=== PATIENT | female | born 1945 | race American Indian/Alaskan Native ===

== ENCOUNTER 2019-08-30 09:01 | Emergency (ER) | payer MEDICARE ==
[2019-08-30 09:06] VITALS: BP 174/96
--- NOTE | 2019-08-30 10:48 | Emergency Department Report ---
ED Shortness of Breath HPI - General Chief Complaint: Dyspnea/Respdistress Stated Complaint: SOB Time Seen by Provider: 08/30/19 10:31 Source: patient Mode of arrival: Ambulatory Limitations: No Limitations - History of Present Illness Initial Comments: 74-year-old -[place] female presents to the emergency room complaining of shortness of breath and cough x2 days. Patient denies any recent travels denies any fever denies any chest pain. Patient reports that she has a past medical history of diabetes on insulin 70/30. Patient states that she had a sick contact a week ago and now has come up with a cough and shortness of breath. Patient denies any lower leg swelling she denies any history of congestive heart failure. MD Complaint: shortness of breath, cough Onset/Timin -: days(s) Pain Scale: 0 Consistency: intermittent Worsens With: lying flat Known History Of: diabetes Associated Symptoms: cough Treatments Prior to Arrival: none - Related Data Home Oxygen Therapy: No Allergies Allergy/AdvReac Type Severity Reaction Status Date / Time No Known Allergies Allergy Unverified 08/30/19 09:04 ED Review of Systems ROS: Stated complaint: SOB Other details as noted in HPI Comment: All other systems reviewed and negative ED Past Medical Hx - Past Medical History Previous Medical History?: Yes Hx Diabetes: Yes ED Physical Exam - General Limitations: No Limitations General appearance: alert, other (Patient is having shortness of breath while talking ) - Head Head exam: Present: atraumatic, normocephalic - Eye Eye exam: Present: normal appearance - ENT ENT exam: Present: mucous membranes moist - Neck Neck exam: Present: normal inspection, full ROM - Respiratory Respiratory exam: Present: rales, accessory muscle use, decreased breath sounds - Cardiovascular Cardiovascular Exam: Present: tachycardia - GI/Abdominal GI/Abdominal exam: Present: soft, normal bowel sounds - Extremities Exam Extremities exam: Present: normal inspection - Back Exam Back exam: Present: normal inspection - Neurological Exam Neurological exam: Present: alert, oriented X3 - Psychiatric Psychiatric exam: Present: normal affect, normal mood - Skin Skin exam: Present: warm, dry, intact, normal color. Absent: rash ED Course Vital Signs 08/30/19 08/30/19 08/30/19 09:05 11:28 14:01 Temperature 98.5 F Pulse Rate 109 H 100 H Pulse Rate [ 71 Bilateral] Respiratory 16 16 Rate Respiratory 16 Rate [Bilateral ] Blood Pressure 174/96 [Right] O2 Sat by Pulse 98 98 Oximetry - Reevaluation(s) Reevaluation #1: 08/30/19 14:02 Patient reports she feels much better after having antibiotics and Lasix. Patient was able to ambulate without shortness of breath and de-satting. ED Medical Decision Making - Lab Data Result diagrams: 08/30/19 11:20 08/30/19 11:20 - Radiology Data Radiology results: report reviewed Patient: ELSY VIDAL MR#: [id number] : 1945 Acct:[id number] Age/Sex: 74 / F ADM Date: 08/30/19 Loc: ED Attending Dr: Ordering Physician: DEON FAY MD Date of Service: 08/30/19 Procedure(s): XR chest routine 2V Accession Number(s): [id number] cc: DEON FAY MD Fluoro Time In Minutes: CHEST 2 VIEWS INDICATION / CLINICAL INFORMATION: SOB x 3 days. COMPARISON: 2 views of the chest from 02/04/2009. FINDINGS: SUPPORT DEVICES: None. HEART / MEDIASTINUM: No significant abnormality. LUNGS / PLEURA: There are generalized bilateral pulmonary opacities. No significant pleural effusion. No pneumothorax. ADDITIONAL FINDINGS: No significant additional findings. IMPRESSION: Bilateral pulmonary opacities may represent pneumonia or edema. Please correlate with the clinical findings. Follow-up PA and lateral chest radiographs in 2-3 weeks are recommended to document clearing. Signer Name: Hank Cody MD Signed: 08/30/2019 10:43 AM Workstation Name: [id number] Transcribed By: [place] Dictated By: Hank Cody MD Electronically Authenticated By: Hank Cody MD Signed Date/Time: 08/30/19 1043 DD/ 1039 TD/TT: - Medical Decision Making 74-year-old -[place] female presents to the emergency room complaining of shortness of breath and cough x2 days. Patient denies any recent travels denies any fever denies any chest pain. Patient reports that she has a past medical history of diabetes on insulin 70/30. Patient states that she had a sick contact a week ago and now has come up with a cough and shortness of breath. Patient denies any lower leg swelling she denies any history of congestive heart failure. Chest x-ray shows opacities in the lower lung suggestive of pneumonia, CBC CMP BNP troponin has been ordered. Patient BNP came back at 1954. Initiated Lasix 40 mg IV and albuterol treatment. Patient did get azithromycin for coverage of community-acquired pneumonia. I discussed with patient that I would like for her to follow-up with a continuing education instructor for further evaluation of new onset of congestive congestive heart failure. As well as her primary care provider. Patient verbalized understanding. Critical care attestation.: If time is entered above; I have spent that time in minutes in the direct care of this critically ill patient, excluding procedure time. ED Disposition Clinical Impression: Diabetes Congestive heart failure Qualifiers: Heart failure type: unspecified Heart failure chronicity: acute Qualified Code(s): I50.9 - Heart failure, unspecified Community acquired pneumonia Qualifiers: Laterality: unspecified laterality Qualified Code(s): J18.9 - Pneumonia, unspecified organism Disposition: TO HOME OR SELFCARE Is pt being admited?: No Does the pt Need Aspirin: No Condition: Stable Instructions: Diabetes Mellitus Type 2 in Adults (ED), Heart Failure (ED) Referrals: ORA RIZO MD [Primary Care Provider] - 3-5 Days [facility] [Provider Group] - 3-5 Days
[2019-08-30] MEDS ORDERED: ALBUTEROL 2.5 MG/3 ML NEBU IH ONE (11:05)
[2019-08-30] MEDS ORDERED: AZITHROMYCIN 500 MG in SODIUM CHLORIDE 0.9% 250ML 250 ML IV ONE (11:30)
[2019-08-30 11:54] LABS: Basophils % (Auto) 0.9 % (0.0-1.8); Eosinophils % (Auto) 0.6 % (0.0-4.3); Hematocrit 38.6 % (30.3-42.9); Hemoglobin 13.3 gm/dl (10.1-14.3); Lymphocytes # (Auto) 0.7 K/mm3 (1.2-5.4); Lymphocytes % (Auto) 13.3 % (13.4-35.0); Mean Corpuscular HGB Conc 35 % (30-34); Mean Corpuscular Volume 83 fl (79-97); Monocytes # (Auto) 0.4 K/mm3 (0.0-0.8); Monocytes % (Auto) 6.7 % (0.0-7.3); Platelet Count 298 K/mm3 (140-440); Red Blood Count 4.67 M/mm3 (3.65-5.03); Red Cell Distribution Width 14.6 % (13.2-15.2)
[2019-08-30 12:12] LABS: Alanine Aminotransferase 16 units/L (7-56); Albumin 3.6 g/dL (3.9-5); BUN/Creatinine Ratio 15; Blood Urea Nitrogen 12 mg/dL (7-17); Calcium 9.6 mg/dL (8.4-10.2); Hemolysis Index 7
[2019-08-30] MEDS ORDERED: FUROSEMIDE 40 MG/4 ML INJ IV ONE (12:22)
== END 2019-08-30 14:32 | disposition home or self-care (01) ==
LOC: ED 09:01
DX: E11.9 Type 2 diabetes mellitus without complications (principal); I10 Essential (primary) hypertension; J18.9 Pneumonia, unspecified organism; Z79.4 Long term (current) use of insulin
CPT/HCPCS: 36415; 71046; 80053; 83880; 85025; 94640; 96365; 96375; 99284; J0456; J1940; J7050; 94644

== ENCOUNTER 2020-05-31 11:11 | Emergency (ER) | payer MEDICARE ==
--- NOTE | 2020-05-31 12:10 | Emergency Department Report ---
ED Palpitations HPI - General Chief Complaint: Arrhythmia/Palpitations Stated Complaint: HEART RACING Time Seen by Provider: 05/31/20 11:50 Source: patient Mode of arrival: Ambulatory Limitations: No Limitations - History of Present Illness Initial Comments: 74-year-old female, history of CHF, diabetes, presents to ED with an arrhythmia. Patient had an appointment at her PCPs office. Upon checking her vital signs, patient was found to be tachycardic. EKG was done which showed that patient was in A. fib with RVR. Patient reports she did not have a sensation of palpitations, however she did feel lightheaded and slightly short of breath. Patient sent to the ED for further evaluation. She denies any chest pain, fever, vomiting, abdominal pain, cough, known exposure to anyone who has tested positive for COVID-19. Patient also denies any history of actually having COVID-19. Heart rate is currently in the 90s. Patient is unsure if he has been diagnosed with atrial fibrillation previously. She denies being on any anticoagulation. Program Attendant: Dr Kezia Johnson MD Complaint: atrial fibrillation -: This morning Context: occured during rest Arrythmia History: atrial fibrillation Associated Symptoms: shortness of breath, near-syncope. denies: chest pain, nausea/vomiting, diaphoresis, cough - Related Data Home Medications Medication Instructions Recorded Confirmed Last Taken Insulin NPH Hum/Reg Insulin Hm 15 units SQ DAILY 10/24/19 02/05/20 02/04/20 [Novolin 70-30 100 Unit/ml Vial] Metformin HCl [metFORMIN] 1,000 mg PO BID 10/24/19 02/05/20 02/04/20 Entresto 24 - 26 mg 24 - 26 mg PO BID 02/05/20 02/05/20 02/04/20 Ergocalciferol (Vitamin D2) 50,000 unit PO QWEEK 02/05/20 02/05/20 01/30/20 [Vitamin D2] Previous Rx's Medication Instructions Recorded Last Taken Type Nortriptyline [Pamelor] 25 mg PO QHS capsule 10/27/19 02/03/20 Rx Acetaminophen [Acetaminophen TAB] 650 mg PO Q4H PRN tablet 02/07/20 Unknown Rx AtorvaSTATin [Lipitor] 20 mg PO QHS #30 tablet 02/07/20 Unknown Rx Furosemide [Lasix TAB] 40 mg PO QDAY #30 tablet 02/07/20 Unknown Rx Insulin Lispro [Humalog] 0 unit SUB-Q ACHS vial 02/07/20 Unknown Rx Sacubitril/Valsartan [Entresto 24 1 each PO BID tablet 02/07/20 Unknown Rx - 26 mg] hydroCHLOROthiazide [HCTZ] 25 mg PO QDAY 30 Days #30 tablet 02/07/20 Unknown Rx oxyCODONE /ACETAMINOPHEN [Percocet 1 tab PO Q6H PRN tablet 02/07/20 Unknown Rx 5/325 mg] Apixaban [Eliquis] 5 mg PO BID #60 tablet 05/31/20 Unknown Rx Metoprolol [Lopressor TAB] 25 mg PO BID #60 tablet 05/31/20 Unknown Rx Allergies Allergy/AdvReac Type Severity Reaction Status Date / Time No Known Allergies Allergy Verified 05/31/20 11:16 ED Review of Systems ROS: Stated complaint: HEART RACING Other details as noted in HPI Comment: All other systems reviewed and negative Constitutional: denies: chills, fever Respiratory: shortness of breath. denies: cough Cardiovascular: denies: chest pain, palpitations Gastrointestinal: denies: nausea, vomiting ED Past Medical Hx - Past Medical History Hx Hypertension: Yes Hx Heart Attack/AMI: No Hx Congestive Heart Failure: Yes (hx) Hx Diabetes: Yes Hx Deep Vein Thrombosis: No Hx Arthritis: No Hx Seizures: No Hx Asthma: No - Surgical History Hx Cholecystectomy: No Hx Appendectomy: No - Social History Smoking Status: Never Smoker - Medications Home Medications: Home Medications Medication Instructions Recorded Confirmed Last Taken Type Insulin NPH Hum/Reg Insulin Hm 15 units SQ DAILY 10/24/19 02/05/20 02/04/20 History [Novolin 70-30 100 Unit/ml Vial] Metformin HCl [metFORMIN] 1,000 mg PO BID 10/24/19 02/05/20 02/04/20 History Nortriptyline [Pamelor] 25 mg PO QHS capsule 10/27/19 02/05/20 02/03/20 Rx Entresto 24 - 26 mg 24 - 26 mg PO BID 02/05/20 02/05/20 02/04/20 History Ergocalciferol (Vitamin D2) 50,000 unit PO QWEEK 02/05/20 02/05/20 01/30/20 History [Vitamin D2] Acetaminophen [Acetaminophen TAB] 650 mg PO Q4H PRN tablet 02/07/20 Unknown Rx AtorvaSTATin [Lipitor] 20 mg PO QHS #30 tablet 02/07/20 Unknown Rx Furosemide [Lasix TAB] 40 mg PO QDAY #30 tablet 02/07/20 Unknown Rx Insulin Lispro [Humalog] 0 unit SUB-Q ACHS vial 02/07/20 Unknown Rx Sacubitril/Valsartan [Entresto 24 1 each PO BID tablet 02/07/20 Unknown Rx - 26 mg] hydroCHLOROthiazide [HCTZ] 25 mg PO QDAY 30 Days #30 tablet 02/07/20 Unknown Rx oxyCODONE /ACETAMINOPHEN [Percocet 1 tab PO Q6H PRN tablet 02/07/20 Unknown Rx 5/325 mg] Apixaban [Eliquis] 5 mg PO BID #60 tablet 05/31/20 Unknown Rx Metoprolol [Lopressor TAB] 25 mg PO BID #60 tablet 05/31/20 Unknown Rx ED Physical Exam - General Limitations: No Limitations General appearance: alert, in no apparent distress - Head Head exam: Present: atraumatic, normocephalic - Eye Eye exam: Present: normal appearance, EOMI - ENT ENT exam: Present: mucous membranes moist - Neck Neck exam: Present: normal inspection - Respiratory Respiratory exam: Present: normal lung sounds bilaterally. Absent: respiratory distress - Cardiovascular Cardiovascular Exam: Present: regular rate, normal rhythm - GI/Abdominal GI/Abdominal exam: Present: soft. Absent: distended, tenderness - Extremities Exam Extremities exam: Present: normal inspection - Neurological Exam Neurological exam: Present: alert, oriented X3, CN II-XII intact. Absent: motor sensory deficit - Psychiatric Psychiatric exam: Present: normal affect, normal mood - Skin Skin exam: Present: warm, dry, intact, normal color ED Course Vital Signs 05/31/20 05/31/20 05/31/20 11:51 12:00 12:15 Pulse Rate 95 H 94 H 93 H Respiratory 24 25 H 22 Rate Blood Pressure 107/61 89/47 O2 Sat by Pulse 100 99 99 Oximetry 05/31/20 05/31/20 05/31/20 12:30 12:45 13:00 Pulse Rate 96 H 88 91 H Respiratory 23 21 25 H Rate Blood Pressure 105/63 107/63 107/63 O2 Sat by Pulse 100 98 97 Oximetry 05/31/20 05/31/20 05/31/20 13:15 13:30 13:46 Pulse Rate 86 86 89 Respiratory 23 20 19 Rate Blood Pressure 115/66 112/62 122/67 O2 Sat by Pulse 97 99 99 Oximetry 05/31/20 05/31/20 05/31/20 14:00 14:16 14:33 Pulse Rate 93 H 94 H Respiratory 17 15 Rate Blood Pressure 122/67 117/64 117/64 O2 Sat by Pulse 98 100 Oximetry 05/31/20 14:46 Pulse Rate Respiratory Rate Blood Pressure 117/64 O2 Sat by Pulse 81 L Oximetry - Reevaluation(s) Reevaluation #1: 05/31/20 12:09 Repeat EKG shows that patient is now in normal sinus rhythm. Lateral T wave inversions present, unchanged compared to EKG from January 2020. - Consultations Consultation #1: 05/31/20 12:32 Abbie Whitney, midlevel w/ [facility], saw pt at bedside. Since patient now in normal sinus rhythm, states to d/c her carvedilol, and switch to metoprolol 25 mg twice daily. Start Eliquis. Patient will follow-up in office. ED Medical Decision Making - Lab Data Result diagrams: 05/31/20 12:20 05/31/20 12:20 - EKG Data -: EKG Interpreted by Ca EKG shows normal: QRS complexes, ST-T waves Rate: tachycardia (rate 151) - EKG Data Interpretation: other (Afib w/ RVR) - Radiology Data Radiology results: report reviewed, image reviewed - Medical Decision Making 74-year-old female with paroxysmal A. fib with RVR and spontaneous conversion. Patient came from her PCPs office with EKG showing A. fib. Initial EKG here in ER triage also showed A. fib as well. Upon being placed in treatment room and on monitor, patient appears to be in normal sinus rhythm. EKG confirms that patient is currently in normal sinus rhythm, with a rate in the 90s. No ST changes. Labs are unremarkable. Patient has been seen and evaluated by cardiology. We will start her on Eliquis and replace her carvedilol with metoprolol. Patient to follow-up for this with her radiation officer. Return precautions given. - Differential Diagnosis A. fib, ACS, electrolyte abnormality, thyroid disease Critical care attestation.: If time is entered above; I have spent that time in minutes in the direct care of this critically ill patient, excluding procedure time. ED Disposition Clinical Impression: New onset atrial fibrillation Disposition: TO HOME OR SELFCARE Is pt being admited?: No Condition: Stable Instructions: Atrial Fibrillation, [id number], Preventing Atrial Fibrillation-Related Stroke Additional Instructions: Stop taking your carvedilol. You have been given 2 new medications to take. Follow up with your radiation officer as instructed. They will contact you with an appointment. Prescriptions: Apixaban [Eliquis] 5 mg PO BID #60 tablet Metoprolol [Lopressor TAB] 25 mg PO BID #60 tablet Referrals: KEZIA JOHNSON MD [Staff Physician] - 3-5 Days Time of Disposition: 13:59
--- NOTE | 2020-05-31 12:34 | XRay Report ---
CHEST 1 VIEW INDICATION: palpitations COMPARISON: 02/04/2020 FINDINGS: Support devices: None Heart: Normal. Heart size has decreased slightly since the previous study Lungs/Pleura: Diffuse pulmonary disease has certainly improved. Mild disease persists and may be lunchroom monitor win. No pleural fluid. IMPRESSION: 1. Significant improvement since January. Signer Name: Maikel Baca MD Signed: 05/31/2020 12:29 PM Workstation Name: [id number]
[2020-05-31 13:05] LABS: Basophils % (Auto) 0.8 % (0.0-1.8); Eosinophils # (Auto) 0.2 K/mm3 (0.0-0.4); Eosinophils % (Auto) 3.1 % (0.0-4.3); Hematocrit 38.7 % (30.3-42.9); Hemoglobin 12.8 gm/dl (10.1-14.3); Lymphocytes # (Auto) 0.8 K/mm3 (1.2-5.4); Lymphocytes % (Auto) 15.3 % (13.4-35.0); Mean Corpuscular HGB Conc 33 % (30-34); Mean Corpuscular Volume 89 fl (79-97); Monocytes # (Auto) 0.4 K/mm3 (0.0-0.8); Monocytes % (Auto) 8.1 % (0.0-7.3); Platelet Count 275 K/mm3 (140-440); Red Blood Count 4.35 M/mm3 (3.65-5.03); Red Cell Distribution Width 14.8 % (13.2-15.2)
--- NOTE | 2020-05-31 13:07 | Consultation ---
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 Patient presents to this hospital from her PCP office with light headedness and abnormal ECG. An ECG done revealed rapid atrial fibrillation, rate 151. She has since reverted to a normal sinus rhythm spontaneously. There is no history of arrhythmias. No shortness of breath and no lower extremity edema. Cardiac consultation has been requested. Past History Past Medical History: heart failure Medications and Allergies Allergies Allergy/AdvReac Type Severity Reaction Status Date / Time No Known Allergies Allergy Verified 05/31/20 11:16 Home Medications Medication Instructions Recorded Confirmed Last Taken Type Insulin NPH Hum/Reg Insulin Hm 15 units SQ DAILY 10/24/19 02/05/20 02/04/20 History [Novolin 70-30 100 Unit/ml Vial] Metformin HCl [metFORMIN] 1,000 mg PO BID 10/24/19 02/05/20 02/04/20 History Nortriptyline [Pamelor] 25 mg PO QHS capsule 10/27/19 02/05/20 02/03/20 Rx Entresto 24 - 26 mg 24 - 26 mg PO BID 02/05/20 02/05/20 02/04/20 History Ergocalciferol (Vitamin D2) 50,000 unit PO QWEEK 02/05/20 02/05/20 01/30/20 History [Vitamin D2] Acetaminophen [Acetaminophen TAB] 650 mg PO Q4H PRN tablet 02/07/20 Unknown Rx AtorvaSTATin [Lipitor] 20 mg PO QHS #30 tablet 02/07/20 Unknown Rx Furosemide [Lasix TAB] 40 mg PO QDAY #30 tablet 02/07/20 Unknown Rx Insulin Lispro [Humalog] 0 unit SUB-Q ACHS vial 02/07/20 Unknown Rx Sacubitril/Valsartan [Entresto 24 1 each PO BID tablet 02/07/20 Unknown Rx - 26 mg] hydroCHLOROthiazide [HCTZ] 25 mg PO QDAY 30 Days #30 tablet 02/07/20 Unknown Rx oxyCODONE /ACETAMINOPHEN [Percocet 1 tab PO Q6H PRN tablet 02/07/20 Unknown Rx 5/325 mg] Apixaban [Eliquis] 5 mg PO BID #60 tablet 05/31/20 Unknown Rx Metoprolol [Lopressor TAB] 25 mg PO BID #60 tablet 05/31/20 Unknown Rx Review of Systems Cardiovascular: palpitations, lightheadedness, no chest pain, no rapid/irregular heart beat Physical Examination General appearance: no acute distress HEENT: Positive: PERRL Neck: Positive: neck supple Cardiac: Positive: Reg Rate and Rhythm Neuro: Positive: Grossly Intact Results 05/31/20 12:20 Assessment and Plan New onset Atrial fibrillation spontaneously reverted to sinus rhythm Hx of Dilated non ischemic cardiomyopathy [facility] 10/26/19 revealed no significant CAD and EF 15-20% 01/2020 echo reports persistent severe dilated cardiomyopathy with an LVEF 20- 25%. Recommendations: Change carvedilol to metoprolol 25 mg twice daily for suppression of paroxysmal. Oral anticoagulation with Eliquis for CVA prophylaxis. Continue home GDMT for non ischemic cardiomyopathy. Stable cardiac boudreaux. Eventual outpatient ICD evaluation. Patient will follow up with her primary clinical trial coordinator, within 5-7 days. <KEZIA RICHARDSON - Last Filed: 06/01/20 12:41> History of Present Illness History of present illness: I SAW THIS PT & AGREE WITH THE Dx & Tx PLAN. Physical Examination Vital Signs Pulse Resp Pulse Ox 95 H 24 100 05/31/20 11:51 05/31/20 11:51 05/31/20 11:51 Results 05/31/20 12:20 05/31/20 12:20 Coagulation 05/31/20 Range/Units 12:20 PT 13.2 (12.2-14.9) Sec. INR 1.02 (0.87-1.13) APTT 27.9 (24.2-36.6) Sec. CBC 05/31/20 Range/Units 12:20 WBC 5.4 (4.5-11.0) K/mm3 RBC 4.35 (3.65-5.03) M/mm3 Hgb 12.8 (10.1-14.3) gm/dl Hct 38.7 (30.3-42.9) % Plt Count 275 (140-440) K/mm3 Lymph # (Auto) 0.8 L (1.2-5.4) K/mm3 [place] # (Auto) 0.4 (0.0-0.8) K/mm3 Eos # (Auto) 0.2 (0.0-0.4) K/mm3 Baso # (Auto) 0.0 (0.0-0.1) K/mm3 Comprehensive Metabolic Panel 05/31/20 Range/Units 12:20 Sodium 140 (137-145) mmol/L Potassium 3.6 (3.6-5.0) mmol/L Chloride 106.0 (98-107) mmol/L Carbon Dioxide 22 (22-30) mmol/L BUN 12 (7-17) mg/dL Creatinine 1.2 (0.6-1.2) mg/dL Glucose 133 H (65-100) mg/dL Calcium 9.9 (8.4-10.2) mg/dL
[2020-05-31 13:12] LABS: INR 1.02 (0.87-1.13)
[2020-05-31 13:13] LABS: Partial Thromboplastin Time 27.9 Sec. (24.2-36.6)
[2020-05-31 13:22] LABS: BUN/Creatinine Ratio 10; Blood Urea Nitrogen 12 mg/dL (7-17); Calcium 9.9 mg/dL (8.4-10.2); Hemolysis Index 6
[2020-05-31] MEDS ORDERED: APIXABAN 5 MG TAB PO ONE (13:36)
[2020-05-31 14:48] VITALS: BP 117/64
== END 2020-05-31 14:35 | disposition home or self-care (01) ==
LOC: ED 11:11
DX: I48.91 Unspecified atrial fibrillation (principal); I11.0 Hypertensive heart disease with heart failure; I50.9 Heart failure, unspecified; E11.9 Type 2 diabetes mellitus without complications; Z79.4 Long term (current) use of insulin; Z79.899 Other long term (current) drug therapy
CPT/HCPCS: 36415; 71045; 80048; 84439; 84443; 84484; 85025; 85610; 85730; 93005

== ENCOUNTER 2021-06-26 11:13 | Emergency (ER) | payer MEDICARE ==
[2021-06-26] MEDS ORDERED: SODIUM CHLORIDE 0.9% 1000 ML 1,000 ML IV ONE (12:51)
--- NOTE | 2021-06-26 12:55 | Emergency Department Report ---
HPI - General Chief Complaint: Medical Clearance Time Seen by Provider: 06/26/21 12:20 - HPI HPI: 75-year-old female with complex medical history including insulin-dependent diabetes mellitus, CHF, paroxysmal atrial fibrillation on Eliquis, and nonhealing left heel ulcer for which she follows with vascular surgery was brought in by EMS at the direction of Dr. Arteaga of vascular surgery who expressed concern for acute heart failure. The patient went to see Dr. Arteaga in the office today for her left heel ulcer which evaluated. The patient was recently admitted to our hospital and found to have weakness, CLIFFORD, and acute hepatitis but was discharged few days ago. This morning she disclosed to Dr. Arteaga that since being discharged she has had progressive dyspnea on exertion. He noted her tachypnea in the office today and sent her to the emergency department for further evaluation. She was noted to have extremely elevated blood sugar and was given insulin in the office but does not know the amount. At present she reports no physical symptoms or complaints. She does say that she has been relatively immobile given her left heel ulcer recently. She denies any associated fever/chills, headache, vision change, focal weakness, sensory changes, chest pain, cough, abdominal pain, vomiting, or any other complaints. ED Past Medical Hx - Past Medical History Hx Hypertension: Yes Hx Heart Attack/AMI: No Hx Congestive Heart Failure: Yes Hx Diabetes: Yes Hx Deep Vein Thrombosis: No Hx Arthritis: No Hx Seizures: No Hx Asthma: No - Surgical History Hx Cholecystectomy: No Hx Appendectomy: No - Social History Smoking Status: Never Smoker - Medications Home Medications: Home Medications Medication Instructions Recorded Confirmed Last Taken Type Ergocalciferol (Vitamin D2) 50,000 unit PO QWEEK 02/05/20 06/19/21 01/30/20 History [Vitamin D2] Sacubitril/Valsartan [Entresto 24 1 each PO BID tablet 02/07/20 06/19/21 Unknown Rx - 26 mg] Amiodarone [Cordarone 200 MG TAB] 200 mg PO BID #60 tablet 07/16/20 06/19/21 Unknown Rx Apixaban [Eliquis] 5 mg PO BID #60 tablet 07/16/20 06/19/21 Unknown Rx AtorvaSTATin [Lipitor] 20 mg PO QHS #30 tablet 07/16/20 06/19/21 Unknown Rx Furosemide [Lasix TAB] 40 mg PO BID #30 tablet 07/16/20 06/19/21 Unknown Rx Metoprolol [Lopressor TAB] 25 mg PO BID 30 Days #60 tablet 07/16/20 06/19/21 Unk nown Rx Nortriptyline [Pamelor] 25 mg PO QHS #30 capsule 07/16/20 06/19/21 Unknown Rx Spironolactone [Aldactone] 25 mg PO QDAY #30 tablet 07/16/20 06/19/21 Unknown Rx Insulin NPH/Regular [NovoLIN 70/30] 15 unit SUB-Q QPM 06/19/21 06/19/21 Unknown History Insulin NPH/Regular [NovoLIN 70/30] 25 unit SUB-Q QAM 06/19/21 06/19/21 Unknown History Pentoxifylline 400 mg PO TIDWM 06/19/21 06/19/21 Unknown History ED Review of Systems ROS: Stated complaint: SENT BY DR. ARTEAGA Other details as noted in HPI Comment: All other systems reviewed and negative Constitutional: denies: chills, fever Eyes: denies: eye pain, vision change ENT: denies: throat pain, congestion Respiratory: SOB with exertion. denies: cough Cardiovascular: denies: chest pain, dyspnea on exertion Gastrointestinal: denies: abdominal pain, nausea, vomiting Genitourinary: denies: dysuria, frequency Musculoskeletal: denies: back pain, joint swelling Skin: denies: rash, lesions Neurological: denies: headache, weakness, numbness Psychiatric: denies: anxiety, depression Physical Exam - Physical Exam Physical Exam: GENERAL: Well developed and well nourished. No acute distress HEAD: Normocephalic. No obvious signs of trauma. ENT: Dry mucous membranes. EYES: Extraocular movements are intact. Pupils are equal round and reactive to light bilaterally NECK: Supple. Full ROM is intact. Trachea is midline. LUNGS: Tachypneic but not in respiratory distress. Equal chest rise bilaterally. Clear to auscultation bilaterally. CARDIOVASCULAR: Regular rate and rhythm. No murmurs or rubs. VASCULAR: Cap refill < 2 seconds. 1+ edema of the bilateral lower extremities ABDOMEN: Abdomen is soft and nondistended. There is no significant tenderness, guarding or rebound. SKIN: Skin is warm and dry NEURO: Patient is awake, alert, and oriented. battery vent plug inserter II-XII grossly intact. No focal deficits. Normal motor and sensory exam throughout. Normal speech. MUSCULOSKELETAL: No obvious deformities. No significant tenderness. Normal ROM throughout. BACK/SPINE: No midline tenderness or step-offs of the C/T/L spine. No costovertebral angle tenderness. ED Medical Decision Making - Lab Data Result diagrams: 06/26/21 13:12 06/26/21 13:12 Lab Results 06/26/21 06/26/21 06/26/21 Range/Units 13:12 13:12 13:12 WBC 8.4 (4.5-11.0) K/mm3 RBC 4.30 (3.65-5.03) M/mm3 Hgb 12.0 (10.1-14.3) gm/dl Hct 36.7 (30.3-42.9) % MCV 85 (79-97) fl MCH 28 (28-32) pg MCHC 33 (30-34) % RDW 14.5 (13.2-15.2) % Plt Count 372 (140-440) K/mm3 Add Manual Diff Complete Total Counted 100 Seg Neuts % (Manual) 76.0 H (40.0-70.0) % Band Neutrophils % 0 % Lymphocytes % (Manual) 12.0 L (13.4-35.0) % Reactive Lymphs % (Man) 0 % Monocytes % (Manual) 11.0 H (0.0-7.3) % Eosinophils % (Manual) 1.0 (0.0-4.3) % Basophils % (Manual) 0 (0.0-1.8) % Metamyelocytes % 0 % Myelocytes % 0 % Promyelocytes % 0 % Blast Cells % 0 % Nucleated RBC % 1.0 H (0.0-0.9) % Seg Neutrophils # Man 6.4 (1.8-7.7) K/mm3 Band Neutrophils # 0.0 K/mm3 Lymphocytes # (Manual) 1.0 L (1.2-5.4) K/mm3 Abs React Lymphs (Man) 0.0 K/mm3 Monocytes # (Manual) 0.9 H (0.0-0.8) K/mm3 Eosinophils # (Manual) 0.1 (0.0-0.4) K/mm3 Basophils # (Manual) 0.0 (0.0-0.1) K/mm3 Metamyelocytes # 0.0 K/mm3 Myelocytes # 0.0 K/mm3 Promyelocytes # 0.0 K/mm3 Blast Cells # 0.0 K/mm3 WBC Morphology Not Reportable Hypersegmented Neuts Not Reportable Hyposegmented Neuts Not Reportable Hypogranular Neuts Not Reportable Smudge Cells Not Reportable Toxic Granulation Not Reportable Toxic Vacuolation Not Reportable Dohle Bodies Not Reportable Pelger-Huet Anomaly Not Reportable Zaria Rods Not Reportable Platelet Estimate Consistent w auto Clumped Platelets Rare Plt Clumps, EDTA Not Reportable Large Platelets Few Giant Platelets Not Reportable Platelet Satelliting Not Reportable Plt Morphology Comment Not Reportable RBC Morphology Not Reportable Dimorphic RBCs Not Reportable Polychromasia Not Reportable Hypochromasia Not Reportable Poikilocytosis Not Reportable Anisocytosis 1+ Microcytosis Not Reportable Macrocytosis Not Reportable Spherocytes Not Reportable Pappenheimer Bodies Not Reportable Sickle Cells Not Reportable Target Cells Not Reportable Tear Drop Cells Not Reportable Ovalocytes Not Reportable Helmet Cells Not Reportable [place] Bodies Not Reportable [place] Rings Not Reportable Del Cells Not Reportable Bite Cells Not Reportable Crenated Cell Not Reportable Elliptocytes Not Reportable Acanthocytes (Spur) Not Reportable Rouleaux Not Reportable Hemoglobin C Crystals Not Reportable Schistocytes Not Reportable Malaria parasites Not Reportable Mendoza Bodies Not Reportable Hem Pathologist Commnt No PT 14.3 (12.2-14.9) Sec. INR 1.00 (0.87-1.13) APTT 26.8 (24.2-36.6) Sec. VBG pH (7.320-7.420) Sodium 143 D (137-145) mmol/L Potassium 4.3 (3.6-5.0) mmol/L Chloride 100.2 (98-107) mmol/L Carbon Dioxide 26 (22-30) mmol/L Anion Gap 21 mmol/L BUN 25 H (7-17) mg/dL Creatinine 1.8 H (0.6-1.2) mg/dL Estimated GFR 33 ml/min BUN/Creatinine Ratio 14 % Glucose 308 H (65-100) mg/dL POC Glucose (70-105) mg/dL Calcium 10.6 H (8.4-10.2) mg/dL Magnesium 2.00 (1.7-2.3) mg/dL Total Bilirubin 0.50 (0.1-1.2) mg/dL Direct Bilirubin < 0.2 (0-0.2) mg/dL Indirect Bilirubin 0.3 mg/dL AST 32 (5-40) units/L ALT 178 H (7-56) units/L Alkaline Phosphatase 93 (35-129) units/L Ammonia (25-60) umol/L Troponin T 0.019 (0.00-0.029) ng/mL NT-Pro-B Natriuret Pep 566.6 (0-900) pg/mL Total Protein 8.2 (6.3-8.2) g/dL Albumin 3.7 L (3.9-5) g/dL Albumin/Globulin Ratio 0.8 % Lipase 68 H (13-60) units/L 06/26/21 06/26/21 06/26/21 Range/Units 13:12 13:12 15:32 WBC (4.5-11.0) K/mm3 RBC (3.65-5.03) M/mm3 Hgb (10.1-14.3) gm/dl Hct (30.3-42.9) % MCV (79-97) fl MCH (28-32) pg MCHC (30-34) % RDW (13.2-15.2) % Plt Count (140-440) K/mm3 Add Manual Diff Total Counted Seg Neuts % (Manual) (40.0-70.0) % Band Neutrophils % % Lymphocytes % (Manual) (13.4-35.0) % Reactive Lymphs % (Man) % Monocytes % (Manual) (0.0-7.3) % Eosinophils % (Manual) (0.0-4.3) % Basophils % (Manual) (0.0-1.8) % Metamyelocytes % % Myelocytes % % Promyelocytes % % Blast Cells % % Nucleated RBC % (0.0-0.9) % Seg Neutrophils # Man (1.8-7.7) K/mm3 Band Neutrophils # K/mm3 Lymphocytes # (Manual) (1.2-5.4) K/mm3 Abs React Lymphs (Man) K/mm3 Monocytes # (Manual) (0.0-0.8) K/mm3 Eosinophils # (Manual) (0.0-0.4) K/mm3 Basophils # (Manual) (0.0-0.1) K/mm3 Metamyelocytes # K/mm3 Myelocytes # K/mm3 Promyelocytes # K/mm3 Blast Cells # K/mm3 WBC Morphology Hypersegmented Neuts Hyposegmented Neuts Hypogranular Neuts Smudge Cells Toxic Granulation Toxic Vacuolation Dohle Bodies Pelger-Huet Anomaly Zaria Rods Platelet Estimate Clumped Platelets Plt Clumps, EDTA Large Platelets Giant Platelets Platelet Satelliting Plt Morphology Comment RBC Morphology Dimorphic RBCs Polychromasia Hypochromasia Poikilocytosis Anisocytosis Microcytosis Macrocytosis Spherocytes Pappenheimer Bodies Sickle Cells Target Cells Tear Drop Cells Ovalocytes Helmet Cells [place] Bodies [place] Rings Del Cells Bite Cells Crenated Cell Elliptocytes Acanthocytes (Spur) Rouleaux Hemoglobin C Crystals Schistocytes Malaria parasites Mendoza Bodies Hem Pathologist Commnt PT (12.2-14.9) Sec. INR (0.87-1.13) APTT (24.2-36.6) Sec. VBG pH 7.354 (7.320-7.420) Sodium (137-145) mmol/L Potassium (3.6-5.0) mmol/L Chloride (98-107) mmol/L Carbon Dioxide (22-30) mmol/L Anion Gap mmol/L BUN (7-17) mg/dL Creatinine (0.6-1.2) mg/dL Estimated GFR ml/min BUN/Creatinine Ratio % Glucose (65-100) mg/dL POC Glucose (70-105) mg/dL Calcium (8.4-10.2) mg/dL Magnesium (1.7-2.3) mg/dL Total Bilirubin (0.1-1.2) mg/dL Direct Bilirubin (0-0.2) mg/dL Indirect Bilirubin mg/dL AST (5-40) units/L ALT (7-56) units/L Alkaline Phosphatase (35-129) units/L Ammonia 15.0 L (25-60) umol/L Troponin T < 0.010 (0.00-0.029) ng/mL NT-Pro-B Natriuret Pep (0-900) pg/mL Total Protein (6.3-8.2) g/dL Albumin (3.9-5) g/dL Albumin/Globulin Ratio % Lipase (13-60) units/L 06/26/21 Range/Units 17:21 WBC (4.5-11.0) K/mm3 RBC (3.65-5.03) M/mm3 Hgb (10.1-14.3) gm/dl Hct (30.3-42.9) % MCV (79-97) fl MCH (28-32) pg MCHC (30-34) % RDW (13.2-15.2) % Plt Count (140-440) K/mm3 Add Manual Diff Total Counted Seg Neuts % (Manual) (40.0-70.0) % Band Neutrophils % % Lymphocytes % (Manual) (13.4-35.0) % Reactive Lymphs % (Man) % Monocytes % (Manual) (0.0-7.3) % Eosinophils % (Manual) (0.0-4.3) % Basophils % (Manual) (0.0-1.8) % Metamyelocytes % % Myelocytes % % Promyelocytes % % Blast Cells % % Nucleated RBC % (0.0-0.9) % Seg Neutrophils # Man (1.8-7.7) K/mm3 Band Neutrophils # K/mm3 Lymphocytes # (Manual) (1.2-5.4) K/mm3 Abs React Lymphs (Man) K/mm3 Monocytes # (Manual) (0.0-0.8) K/mm3 Eosinophils # (Manual) (0.0-0.4) K/mm3 Basophils # (Manual) (0.0-0.1) K/mm3 Metamyelocytes # K/mm3 Myelocytes # K/mm3 Promyelocytes # K/mm3 Blast Cells # K/mm3 WBC Morphology Hypersegmented Neuts Hyposegmented Neuts Hypogranular Neuts Smudge Cells Toxic Granulation Toxic Vacuolation Dohle Bodies Pelger-Huet Anomaly Zaria Rods Platelet Estimate Clumped Platelets Plt Clumps, EDTA Large Platelets Giant Platelets Platelet Satelliting Plt Morphology Comment RBC Morphology Dimorphic RBCs Polychromasia Hypochromasia Poikilocytosis Anisocytosis Microcytosis Macrocytosis Spherocytes Pappenheimer Bodies Sickle Cells Target Cells Tear Drop Cells Ovalocytes Helmet Cells [place] Bodies [place] Rings [place] Cells Bite Cells Crenated Cell Elliptocytes Acanthocytes (Spur) Rouleaux Hemoglobin C Crystals Schistocytes Malaria parasites Mendoza Bodies Hem Pathologist Commnt PT (12.2-14.9) Sec. INR (0.87-1.13) APTT (24.2-36.6) Sec. VBG pH (7.320-7.420) Sodium (137-145) mmol/L Potassium (3.6-5.0) mmol/L Chloride (98-107) mmol/L Carbon Dioxide (22-30) mmol/L Anion Gap mmol/L BUN (7-17) mg/dL Creatinine (0.6-1.2) mg/dL Estimated GFR ml/min BUN/Creatinine Ratio % Glucose (65-100) mg/dL POC Glucose 236 H (70-105) mg/dL Calcium (8.4-10.2) mg/dL Magnesium (1.7-2.3) mg/dL Total Bilirubin (0.1-1.2) mg/dL Direct Bilirubin (0-0.2) mg/dL Indirect Bilirubin mg/dL AST (5-40) units/L ALT (7-56) units/L Alkaline Phosphatase (35-129) units/L Ammonia (25-60) umol/L Troponin T (0.00-0.029) ng/mL NT-Pro-B Natriuret Pep (0-900) pg/mL Total Protein (6.3-8.2) g/dL Albumin (3.9-5) g/dL Albumin/Globulin Ratio % Lipase (13-60) units/L - EKG Data -: EKG Interpreted by De - EKG Data 06/26/21 18:04 Normal sinus rhythm. Normal axis. Normal intervals. No ectopy. Nonspecific T wave inversions in the lateral leads. Otherwise no significant ST segment or T wave abnormalities. - Radiology Data Radiology results: report reviewed - Medical Decision Making 75-year-old female with complex medical history on Eliquis for A. fib sent by Dr. Arteaga of vascular surgery due to concern for acute CHF exacerbation because the patient expressed that she has been short of breath and was apparently with abnormal respirations at his office. The patient reports that she has felt tiffany rt of breath with exertion since being discharged from the hospital few days ago where she was admitted for acute hepatitis and CLIFFORD. She was noted to have elevated blood sugar at the doctor's office and received an unknown amount of insulin. Here she is afebrile and with normal vital signs other than tachypnea. Her oxygen saturation is in the high 90s on room air. Lungs are clear to auscultation but she does have dry mucous membranes. We will perform broad work-up with a full set of labs, EKG, chest x-ray, and reassess. Chest x-ray reveals no acute abnormalities. Labs reveal no significant leukocytosis or anemia. Creatinine is elevated at 1.8 which is not significantly different from her creatinine on June 24 which was 1.5. Troponin is negative. BNP is negative. Patient is noted to have elevated blood sugar in the 300s for which I have ordered IV fluids. The patient remains with stable vital signs and is sitting comfortably in the chair I have ordered a VQ scan to assess for evidence of PE given negative chest x-ray and no findings to explain the patient's parent respiratory distress that her doctors office. At 2:38 PM I spoke with Dr. Arteaga over the phone regarding the case. He says that in the office the patient had severe orthopnea and could not lay flat. He said that she was in respiratory distress and at one point was satting 92% but never dropped below that value. He says that from his perspective if her VQ scan is negative and she remains with normal vitals, she should be discharged home to follow-up with PCP and with him. VQ scan shows low probability of PE. At 6 PM, I reassessed the patient and she is sleeping comfortably in the bed. For the entire time that she has been in the ER she is been with normal oxygen saturation on room air. She is asymptomatic currently. We discussed the results of her tests including her elevated blood sugar along with the importance of checking her blood sugar and giving herself the correct amount of insulin. She wants to go home and follow-up. Critical care attestation.: If time is entered above; I have spent that time in minutes in the direct care of this critically ill patient, excluding procedure time. ED Disposition Clinical Impression: Hyperglycemia, Dyspnea, CLIFFORD (acute kidney injury), Dehydration Disposition: 01 HOME / SELF CARE / HOMELESS Is pt being admited?: No Instructions: Hyperglycemia, [id number], Blood Glucose Monitoring, Adult, D ehydration, Elderly, Rehydration, Elderly, Shortness of Breath, Adult, [id number] Referrals: [facility] [Provider Group] - 3-5 Days ADAN ARTEAGA MD [Staff Physician] - 3-5 Days
[2021-06-26 13:47] LABS: Hematocrit 36.7 % (30.3-42.9); Mean Corpuscular HGB Conc 33 % (30-34); Mean Corpuscular Volume 85 fl (79-97); Platelet Count 372 K/mm3 (140-440); Red Cell Distribution Width 14.5 % (13.2-15.2)
[2021-06-26 13:56] LABS: Partial Thromboplastin Time 26.8 Sec. (24.2-36.6)
[2021-06-26 14:12] LABS: Alanine Aminotransferase 178 units/L (7-56); Albumin 3.7 g/dL (3.9-5); BUN/Creatinine Ratio 14; Blood Urea Nitrogen 25 mg/dL (7-17); Calcium 10.6 mg/dL (8.4-10.2); Hemolysis Index 6
[2021-06-26 14:13] LABS: Bilirubin,Direct < 0.2 mg/dL (0-0.2)
--- NOTE | 2021-06-26 14:13 | XRay Report ---
CHEST 1 VIEW INDICATION: SOB. COMPARISON: 06/18/2021 FINDINGS: Support devices: None. Heart: Within normal limits. Lungs/Pleura: No acute air space or interstitial disease. Additional findings: None. IMPRESSION: No acute findings. Signer Name: Amador Miller Jr, MD Signed: 06/26/2021 2:09 PM Workstation Name: [id number]
[2021-06-26 14:45] LABS: Basophils % (Manual) 0 % (0.0-1.8); Total Cells Counted 100
[2021-06-26 14:46] LABS: Anisocytosis 1+; Large Platelets Few; Platelet Clumps Rare; Platelet Estimate Consistent w Auto
--- NOTE | 2021-06-26 17:19 | Nuclear Medicine Report ---
NUCLEAR MEDICINE PERFUSION LUNG SCAN INDICATION: assess for PE. Shortness of breath TECHNIQUE: 5.2 mCi of Tc-99m MAA were given by IV. COMPARISON: Chest radiograph dated 06/26/2021. FINDINGS: PERFUSION: No significant perfusion defects. ADDITIONAL FINDINGS: None. IMPRESSION: 1. Low probability for pulmonary embolism. Signer Name: Nando Sawyer MD Signed: 06/26/2021 5:15 PM Workstation Name: [id number]
[2021-06-26 20:16] VITALS: BP 125/62
--- NOTE | 2021-06-28 12:57 | Electrocardiograph Report ---
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
== END 2021-06-26 20:53 | disposition home or self-care (01) ==
LOC: ED 11:13
DX: E11.65 Type 2 diabetes mellitus with hyperglycemia (principal); R06.00 Dyspnea, unspecified; N17.9 Acute kidney failure, unspecified; E86.0 Dehydration; I10 Essential (primary) hypertension
CPT/HCPCS: 36415; 71045; 78580; 80048; 80076; 82140; 82805; 82962; 83690; 83735; 83880; 84484; 85007; 85025; 85610; 85730; 87040; 93005; 99285; A9540